=== PATIENT | female | born 1945 | race Caucasian/White ===

== ENCOUNTER 2023-12-27 08:00 | Day surgery (SDC) | payer MEDICARE, OTHER, SELFPAY ==
[2023-12-27 08:40] VITALS: BMI 22.9
[2023-12-27 08:48] VITALS: BP 167/100; BMI 22.9
[2023-12-27 08:48] LABS: Glucose - Point of Care 138 mg/dl (70-99)
[2023-12-27 10:35] VITALS: BP 144/92
[2023-12-27 10:45] VITALS: BP 161/97
[2023-12-27 11:00] VITALS: BP 162/96
== END 2023-12-27 11:10 | disposition home or self-care (01) ==
LOC: SDS 08:00
PROVIDERS: ATTENDING PHYSICIAN Internal Medicine Gastroenterology
DX: D50.9 Iron deficiency anemia, unspecified (principal); K57.30 Diverticulosis of large intestine without perforation or abscess without bleeding; K64.8 Other hemorrhoids; K64.4 Residual hemorrhoidal skin tags; K31.7 Polyp of stomach and duodenum; K31.A0 Gastric intestinal metaplasia, unspecified; K31.89 Other diseases of stomach and duodenum
CPT/HCPCS: 45378; 43239; 88305; 82962; 88342

== ENCOUNTER → 2024-02-13 10:27 | Outpatient (REF) | payer MEDICARE, OTHER, SELFPAY | LOC: RCS 10:27 | PROVIDERS: ATTENDING PHYSICIAN Internal Medicine Cardiovascular Disease; FAMILY PHYSICIAN Family Medicine | DX: I35.0 Nonrheumatic aortic (valve) stenosis (principal) | CPT/HCPCS: 93306 ==

== ENCOUNTER 2024-03-10 06:31 | Day surgery (SDC) | payer MEDICARE, OTHER, SELFPAY ==
[2024-02-27 10:43] VITALS: BMI 24.1
--- NOTE | 2024-02-27 14:47 | HPS.HSE ---
Family Physician
-
Family Physician: INTERVIEWE UNKNOWN - PT NOT
Chief Complaint
-
Severe aortic stenosis.
History of Present Illness
The patient is an 79 year old female presenting today for severe aortic stenosis. The patient has been ordered serial echocardiograms in the past for this diagnosis. She offered no cardiovascular complaints during her routine 6 month
follow-up with cardiology in mid December 2018; however, she is noted to be very limited with her activities of daily living. She would undergo a repeat echocardiogram in January 2024 to reassess the severity of her valvular disease. Her echocardiogram on
02/13/2024 demonstrated severe aortic stenosis with a peak/mean gradient of 110/65 mmHg and an aortic valve area 0.5 cm2. Based off her worsening gradient, it is recommended she proceed with a right and left cardiac catheterization at this time in
preparation for potential TAVR in the near future. She denies any current complaints today such as chest pain, shortness of breath, nausea, vomiting, diarrhea, lightheadedness, dizziness, cough, sore throat, or fever.
Medical History
Past Medical History
Past Medical History: Reports Other
Additional Past Medical History:
1. Severe aortic stenosis.
2. Hypertension.
3. Hyperlipidemia.
4. Mild aortic regurgitation.
5. Lil-wxgmvnx-givhemusg diabetes.
6. Gastroesophageal reflux disease.
7. Schatzki's ring.
8. Paraesophageal hernia, status post fundoplication 2017.
9. Peptic ulcer disease.
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
11. Colon and gastric polyps.
12. Diverticulosis.
13. Hemorrhoids.
14. Lumbar stenosis with neurogenic claudication.
15. Osteoarthritis, status post left reverse total shoulder arthroplasty 08/2021.
16. Uterine fibroids.
17. Ovarian cysts.
18. Chronic sinusitis.
19. Left eye detached retina, status post repair 2010.
20. Glaucoma.
21. Macular degeneration.
22. Shingles 2019.
23. 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
24. Osteoporosis.
Past Surgical History: Reports Other
Additional Past Surgical History:
1. L4-L5 posterior spinal fusion and L3-L5 decompression.
2. I&D and removal of infected lumbar hardware.
3. Left reverse total shoulder arthroplasty.
4. Right carpal tunnel release.
5. Partial hysterectomy.
6. Cholecystectomy.
7. Appendectomy.
8. Fundoplication.
9. Ovarian cystectomy.
10. Tonsillectomy.
11. Left eye retina repair.
12. Bilateral cataract extraction.
13. Multiple epidural steroid injections.
14. Multiple colonoscopies.
15. Multiple endoscopies.
Social History
Tobacco: Non-smoker
Alcohol: None
Living: Other (The patient lives in a two-story home with her significant other.)
Family History
Family History: Not pertinent
Allergies / Home Medications
Allergy/Medication List:
MEDICATIONS:
1. Gabapentin 300 mg p.o. three times a day.
2. Ferrous sulfate 325 mg p.o. daily.
3. Aloe vera 600 mg p.o. daily.
4. PreserVision 2 tablet p.o. daily.
5. Timolol malleate 0.5% 2 drops ophthalmic daily.
6. Omeprazole 20 mg p.o. daily.
7. [place]-3/fish oil 1 capsule p.o. daily.
8. Metformin HCl 850 mg p.o. daily.
9. Lysine 1000 mg p.o. daily.
10. Lisinopril 10 mg p.o. daily.
11. Latanoprost 0.005% eye drops 2 drops ophthalmic daily.
12. Fluticasone propionate 2 sprays nasal daily.
13. Calcium carbonate 600 mg p.o. twice a day.
14. Atorvastatin 10 mg p.o. daily.
15. Tizanidine 2 mg p.o. three times a day.
16. Excedrin migraine 2 tablets p.o. daily.
ALLERGIES: No known drug allergies.
Review of Systems
-
A 12 point ROS was completed and negative except as noted: Yes
Physical Exam
Vital Signs
Blood pressure 126/76. Heart rate 78. Respirations 18. Pulse ox 97% on room air.
Height 5 feet, 4.5 inches. Weight 64.7 kg. BMI 24.1.
Physical Exam
General: Well Developed, Well Nourished and No Apparent Distress
HEENT: NormoCephalic, Moist mucous membranes and Atraumatic
Respiratory: Clear
Cardiac: Regular Rhythm and Murmur (3/6 murmur. )
GI: Soft, Non Tender and Non Distended
Musculoskeletal: Other (Trace edema of bilateral lower extremities. The patient currently ambulates with a rolling walker. )
Skin: Warm and Dry
Neuro: AO x 3 and Nonfocal/grossly intact
Laboratory Results
-
DIAGNOSTIC STUDIES as of 02/27/2024: White blood cell count 9.2. Hemoglobin 12.4. Platelet count 270,000. Sodium 143. Potassium 4.5. BUN 20. Creatinine 0.9. Glucose 149. Calcium 9.5. AST 21. ALT 12. Albumin 4.4.
EKG 02/27/2024: Normal sinus rhythm. Moderate voltage criteria for LVH, may be normal variant. Nonspecific T wave abnormality.
Echocardiogram 02/13/2024: Mild concentric left ventricular hypertrophy with borderline reduced systolic function and ejection fraction 52%. Thickened mitral leaflets. Mitral annular calcification. Trace mitral regurgitation. Normal left atrium.
Severe aortic stenosis with mild aortic regurgitation. Peak/mean gradient 110/65 mmHg, aortic valve area 0.5 cm2. Normal right heart with normal pulmonary artery systolic pressure. In March 2022, the peak and mean aortic valve gradients were 70 and
43 mmHg. Aortic regurgitation was trace. The aortic valve area was 0.5 cm2. The ejection fraction was 55-60%.
Impression/Plan
-
IMPRESSION/PLAN:
1. Severe aortic stenosis: The patient is in need of a right and left cardiac catheterization with Dr. Can Franks on 03/10/2024. This is in preparation for potential TAVR in the near future. The benefits and risks of the procedure have been
explained to the patient. The patient understands these risks and wishes to proceed.
--- NOTE | 2024-03-09 10:12 | CONSULT.STRU ---
Consultation
-
Date/Time Consultation Requested: 03/10/2024
Date/Time Consultation Performed: 03/10/2024
Requesting Provider: Can Franks MD
Performing Provider: SHIRA Toledo
Reason for Consultation: /TAVR
Patient History
Physicians
Family Physician: Edson Serna MD
Outpatient Sweet Dough Mixer: Can Cast MD
Primary Sweet Dough Mixer: Can Cast MD
History of Present Illness
Ms. Samano is a very pleasant 79 female that presents with severe aortic stenosis. It is difficult to illicit symptoms d/t ADL dysfunction and limited activity r/t neuropathic injury. Her echocardiogram from 02/13/2024 is notable for an aortic
valve P/M 110/65, BRIDGER 0.5, DI 0.2, mild AI, EF 52%, MAC, trace MR, trace TR, PAP 19.
Discussed the pathophysiology and treatment options of including SAVR and TAVR. Explained the evaluation process comprising of CT scan, CT surgical consult, dental clearance, and a heart team discussion. TAVR booklet, prescriptions, appointments,
and contact information given to patient. Allowed for and answered questions at bedside.
Past Medical History
Past Medical History: GERD, HTN, NIDDM, Valvular Disease (Aortic stenosis) and Other (mixed hyperlipidemia, spinal stenosis, osteoarthritis, PUD, macular degeneration, diverticulosis, schatzki's ring, bleeding duodenal vascular ectasia (2012))
Past Surgical History
Past Surgical History: Abdominal (fundoplication (1/3 of stomach lying in chest)), Cholecystectomy, Hysterectomy and Orthopedic ((L) shoulder replacement, spinal surgery, LUZ)
Dental History
Dr. Griffin-- Patient will call to make an appointment
Family History
Mother: at Age (73)
Father: at Age (90) and Cause of (CHF)
Social History
Alcohol: None
Drug: None
Tobacco: Non-Smoker
Personal: Partner
Living: Other (lives with s/o)
Allergies
Allergy/AdvReac Type Severity Reaction Status Date / Time
No Known Allergies Allergy Verified 02/24/24 13:28
Home Medications
�Medication �Instructions �Recorded �Confirmed �Type
atorvastatin 10 mg tablet 10 mg PO DAILY 12/27/23 02/24/24 History
gabapentin 300 mg capsule 300 mg PO TID 12/27/23 02/24/24 History
lisinopril 10 mg tablet 10 mg PO DAILY 12/27/23 02/24/24 History
lysine 500 mg tablet (L-Lysine) 1,000 mg PO DAILY 12/27/23 02/24/24 History
metformin 850 mg tablet 850 mg PO DAILY 12/27/23 02/24/24 History
omega 3-ije-zei-fish oil 1,000 mg 1 cap PO DAILY 12/27/23 02/24/24 History
(120 mg-180 mg) capsule (Fish Oil)
omeprazole 20 mg capsule,delayed 20 mg PO DAILY 12/27/23 02/24/24 History
release
tizanidine 2 mg capsule 2 mg PO TID 12/27/23 02/24/24 History
vit C 250 mg-vit E 90 mg-zinc 40 2 tab PO DAILY 12/27/23 02/24/24 History
mg-copper 1 mk-pdlpyj-etmybk
capsule (PreserVision AREDS-2)
aloe vera 600 mg PO DAILY 02/24/24 02/24/24 History
calcium carbonate (Calcium 600) 600 mg PO BID 02/24/24 02/24/24 History
ferrous sulfate 325 mg (65 mg 325 mg PO DAILY 02/24/24 02/24/24 History
iron) tablet (iron)
latanoprost 0.005 % eye drops 2 drp ophthalmic (eye) DAILY 02/24/24 02/24/24 History
timolol maleate (PF) 0.25 % eye 2 drp ophthalmic (eye) DAILY 02/24/24 02/24/24 History
drops in a dropperette
xdkxhsc-fykcgpgebcral-fllvdfdx 250 2 tab PO DAILY 02/27/24 02/27/24 History
mg-250 mg-65 mg tablet (Excedrin
Migraine)
fluticasone propionate 50 2 spray intranasal DAILY 02/27/24 02/27/24 History
mcg/actuation nasal
spray,suspension
STS%
STS %: 2.62
Review of Systems
-
History Source: Patient
General: Reports Fatigue
HEENT: Reports No Symptoms
Respiratory: Reports No Symptoms
Cardiac: Reports No Symptoms
Abdomen/GI: Reports No Symptoms
: Reports No Symptoms
Musculoskeletal: Reports No Symptoms
Skin: Reports No Symptoms
Neurological: Reports Other (LLE neuralgia)
Vascular: Reports No Symptoms
Physical Exam
Vital Signs
Actual Weight 64.7 kg 02/27/24 10:43
Body Mass Index (BMI) 24.1 02/27/24 10:43
Labs
02/27/2024
HH: 12.4/37.7
Plt: 270K
BUN/Creatinine: 20/0.9
GFR: >60
Diagnostic Studies
Echocardiogram 02/03/2024:
CONCLUSIONS
1. Mild concentric left ventricular hypertrophy with borderline reduced
systolic function and ejection fraction 52%
2. Thickened mitral leaflets, mitral annular calcification, trace mitral
regurgitation and normal left atrium
3. Severe aortic stenosis with mild aortic regurgitation. Peak/mean gradient
110/65 mmHg, aortic valve area 0.5 cm2
4. Normal right heart with normal pulmonary artery systolic pressure
In March 2022 peak and mean aortic valve gradients were 70 and 43 mmHg. Aortic
regurgitation was trace. The aortic valve area was 0.5 cm 2. The EF was 55-
60%.
Cardiac Catheterization 03/10/2024:
INDICATION: This is an 79-year-old female presents for left heart catheterization for treatment of severe symptomatic aortic stenosis. Her most recent echocardiogram was notable for a mean aortic valve gradient of 65 mmHg.
ACCESS: Right radial artery, 5 [place] sheath
HEMODYNAMICS : (mmHg)
AO (s/d) : 131/84
CORONARY FINDINGS
DOMINANCE: Right
LEFT MAIN: Short and unobstructed
LEFT ANTERIOR DESCENDING: The LAD arises normally from the left main and runs in the anterior interventricular groove. The LAD is moderately calcified. There is a 50% stenosis in the mid LAD between the first and second diagonal branches and
tandem 40% stenoses beyond the second diagonal branch. The distal LAD has only minor irregularities.
CIRCUMFLEX: The circumflex is a medium caliber nondominant vessel supplying small OM1 and OM 2. OM 3 is a small to medium caliber vessel that is widely patent and the circumflex terminates in a large OM 4
RIGHT CORONARY ARTERY: The right coronary artery is a moderate to heavily calcified dominant vessel with a 40-50% stenosis in the mid RCA. There are small tandem PDAs arising from the distal RCA and the vessel terminates in a moderate-sized
posterolateral
VENTRICULOGRAPHY: Not done
RADIATION SUMMARY: Fluoro Time (min): 3.9, Dose (mGy): 241, DAP (Gy.cm2) : 19.5
Closure Device: TR band
CONCLUSIONS
1. Noncritical coronary disease involving the mid LAD and mid RCA
RECOMMENDATIONS
1. Proceed with TAVR evaluation as aortic stenosis remains primary clinical problem in the absence of any anginal symptoms
Exam
General: Well Developed, Well Nourished and No Apparent Distress
HEENT: Normocephalic, Moist Mucous Membranes and Atraumatic
Neck: Trachea Midline
Respiratory: Clear
Cardiac: Regular Rhythm and Murmur (III/ PRIYANK)
GI: Soft and Non Tender
Rectal: Deferred by Provider
Skin: Warm and Dry
Neuro: Awake, Alert, Oriented and AO x 3
Psych: Calm
Assessment / Plan
-
Aortic stenosis
Continue TAVR evaluation
Trend creatinine after contrast administration (Rx given)
CT TAVR (03/24)
CT surgical Consult (MPT 04/03)
Frailty testing and KCCQ12 at consult
Will need to start aspirin before TAVR
Dental clearance
Heart team discussion
Data Reviewed
-
EKG: Tracing Personally Visualized and interpreted (NSR)
Director Corporate Security: Report Reviewed by me and Discussed with Physician
Echo: Report Reviewed by me and Discussed with Physician
Labs: Labs Reviewed by me
Old Records: Reviewed (Dr. Cast's office note)
Total Time Spent with Patient (in minutes): 45
[2024-03-10] VITALS (13 sets, daily range): BP systolic 119–157; BP diastolic 79–98
[2024-03-10 07:16] LABS: Glucose - Point of Care 137 mg/dl (70-99)
[2024-03-10] MEDS: NSS 194 ML IV (07:16)
--- NOTE | 2024-03-10 08:43 | ITS.CL.CATH ---
Tin Flopper - Catheterization
Cardiac Catheterization
Procedure Report:
LEFT HEART CATHETERIZATION
Date of Procedure: March 10, 2024
Referring: Dr. Can Cast
PROCEDURES:
1. Coronary angiography
INDICATION: This is an 79-year-old female presents for left heart catheterization for treatment of severe symptomatic aortic stenosis. Her most recent echocardiogram was notable for a mean aortic valve gradient of 65 mmHg.
ACCESS: Right radial artery, 5 [place] sheath
HEMODYNAMICS : (mmHg)
AO (s/d) : 131/84
CORONARY FINDINGS
DOMINANCE: Right
LEFT MAIN: Short and unobstructed
LEFT ANTERIOR DESCENDING: The LAD arises normally from the left main and runs in the anterior interventricular groove. The LAD is moderately calcified. There is a 50% stenosis in the mid LAD between the first and second diagonal branches and
tandem 40% stenoses beyond the second diagonal branch. The distal LAD has only minor irregularities.
CIRCUMFLEX: The circumflex is a medium caliber nondominant vessel supplying small OM1 and OM 2. OM 3 is a small to medium caliber vessel that is widely patent and the circumflex terminates in a large OM 4
RIGHT CORONARY ARTERY: The right coronary artery is a moderate to heavily calcified dominant vessel with a 40-50% stenosis in the mid RCA. There are small tandem PDAs arising from the distal RCA and the vessel terminates in a moderate-sized
posterolateral
VENTRICULOGRAPHY: Not done
RADIATION SUMMARY: Fluoro Time (min): 3.9, Dose (mGy): 241, DAP (Gy.cm2) : 19.5
Closure Device: TR band
CONCLUSIONS
1. Noncritical coronary disease involving the mid LAD and mid RCA
RECOMMENDATIONS
1. Proceed with TAVR evaluation as aortic stenosis remains primary clinical problem in the absence of any anginal symptoms
Copy to: Dr. Can Cast
[2024-03-10] MEDS: NSS 1000 IV (09:01)
--- NOTE | 2024-03-10 16:15 | PTCARENOTE ---
CT surgery SENIOR NET ARCHITECT consulting with pt at 0830. Pt eros all well. All questions addressed.
== END 2024-03-10 12:10 | disposition home or self-care (01) ==
LOC: CATH 06:31
PROVIDERS: ATTENDING PHYSICIAN Internal Medicine Interventional Cardiology; FAMILY PHYSICIAN Family Medicine
DX: I35.0 Nonrheumatic aortic (valve) stenosis (principal); I25.10 Atherosclerotic heart disease of native coronary artery without angina pectoris; I10 Essential (primary) hypertension; E78.2 Mixed hyperlipidemia; E11.9 Type 2 diabetes mellitus without complications; K21.9 Gastro-esophageal reflux disease without esophagitis; Z79.84 Long term (current) use of oral hypoglycemic drugs; Z79.82 Long term (current) use of aspirin; Z82.49 Family history of ischemic heart disease and other diseases of the circulatory system
CPT/HCPCS: 82962; 93454; C1769; C1894; Q9967

== ENCOUNTER → 2024-03-24 09:19 | Outpatient (REF) | payer MEDICARE, OTHER, SELFPAY | LOC: RAD 09:19 | PROVIDERS: ATTENDING PHYSICIAN Nurse Practitioner Acute Care; FAMILY PHYSICIAN Family Medicine | DX: I35.0 Nonrheumatic aortic (valve) stenosis (principal) | CPT/HCPCS: 74174; 75572; Q9967 ==

== ENCOUNTER 2024-04-09 09:25 | Inpatient (IN) | payer MEDICARE, OTHER, SELFPAY ==
[2024-03-31 12:13] VITALS: BMI 22.9
[2024-03-31 12:56] LABS: % Eosinophils 7.8 % (0-6); % Immature Granulocytes 0.2 % (0-0.5); % Lymphocytes 34.7 % (20.5-51.1); % Neutrophils 49.3 % (42.2-75.2); Absolute Basophils 0.1 10^3/uL (0-0.2); Absolute Eosinophils 0.7 10^3/uL (0-0.7); Absolute Monocytes 0.6 10^3/uL (0.1-0.6); Absolute Neutrophils 4.3 10^3/uL (1.4-6.5); Hemoglobin 13.1 g/dL (12.0-16.0); Mean Corp Hgb Conc. 33.6 g/dL (33.0-37.0); Mean Corpuscular Volume 92.2 fL (81.0-99.0); Mean Platelet Volume 9.3 fL (7.4-10.4); Nucleated Red Blood Cells % 0 %; Platelet Count 264 10^3/uL (130-400); Red Blood Cell Count 4.23 10^6/uL (4.20-5.40); Red Cell Dist. Width 14.5 % (11.5-14.5); White Blood Cell Count 8.8 10^3/uL (4.8-10.8)
[2024-03-31 12:58] LABS: Urine Albumin Negative (Neg - Trace); Urine Bilirubin Negative (Negative); Urine Character Clear (Clear); Urine Color Yellow; Urine Glucose Negative (Negative); Urine Ketone Negative (Negative); Urine Leukocyte 1+ (Negative); Urine Nitrite Negative (Negative); Urine Occult Blood Negative (Negative); Urine Urobilinogen Negative (Neg - 1+)
[2024-03-31 13:08] LABS: APTT 31.8 Sec (23.4-35.0)
[2024-03-31 13:21] LABS: Urine Bacteria Many (Negative); Urine Red Blood Cell 0-2 /HPF (0-2)
[2024-03-31 13:28] LABS: NT-proBNP 1520 pg/ml
[2024-03-31 13:38] LABS: ALT (SGPT) 10 U/L (0-35); AST (SGOT) 20 U/L (14-36); Albumin 4.6 g/dl (3.5-5.0); Alkaline Phosphatase 83 U/L (38-126); Blood Urea Nitrogen 23 mg/dl (7-17); Calcium 9.8 mg/dl (8.4-10.2); Carbon Dioxide 27 mmol/L (22-30); Chloride 103 mmol/L (98-107); Direct Bilirubin 0.2 mg/dl (0.0-0.4); Estimated Creatinine Clearance 42 ml/min; Glucose 166 mg/dl (70-99); Potassium 5.4 mmol/L (3.5-5.1); Sodium 140 mmol/L (135-145); Total Bilirubin 0.6 mg/dl (0.2-1.3); Total Protein 6.9 g/dl (6.3-8.2); eGFR 56.95
[2024-03-31 13:59] LABS: Glycohemoglobin (HgbA1c) 6.6 % (4.0-5.6)
--- NOTE | 2024-03-31 15:32 | CM ---
spoke to pt in PAT's, we discussed preop TAVR teaching including lifting and driving restrictions. she is prev indep, lives with her s.o. in a 2 story hoe with a first floor set up and 2 steps to enter. she has a rollator, cane and is getting a
scooter this week. she uses the rollator most times. she has the TAVR educ book, soap and instructions. she is agreeable to a f/u visit from the ct transitional care nurse after dc. plan is for TAVR 04/09, cm role explained and all questions
answered.
[2024-04-09] VITALS (13 sets, daily range): BP systolic 87–165; BP diastolic 56–93; BMI 22.4
--- NOTE | 2024-04-09 09:51 | CM ---
Reviewed chart. Mrs. Samano is in the operating room today. Prior to admission she resides with her significant other in a two story home with two steps to enter. She has a first floor set-up. Prior to admission she uses a rollator for
ambulation. She has a rollator, and single point cane. She is getting a scooter. Medical work-up in progress. The discharge plan is to return home with her significant other and a home visit by the Cardiothoracic Transitional Care Nurse when
medically stable.
--- NOTE | 2024-04-09 12:23 | W.CVOR.SURPR ---
CVOR Surgeon Immed Pre Op
-
I have examined this patient prior to performance of the scheduled procedure.
The patient's condition is unchanged from the time of the dictated/written History and
Physical and the patient is able to undergo the scheduled procedure.
--- NOTE | 2024-04-09 12:31 | PTCARENOTE ---
admission done. VSS. weight. IV placed. clipped and prepped and wiped with CHG wipes. confirmed showers done at home. ABO sent. Consent, H&P and anesthesia forms in chart. will continue to monitor.
[2024-04-09 13:40] LABS: Glucose - Point of Care 126 mg/dl (70-99)
[2024-04-09] MEDS: ANCEF 10 IV ×2 (13:48→17:00)
[2024-04-09 14:39] LABS: ACT-LR - POC 261 Seconds (116-155)
[2024-04-09 14:52] LABS: ACT-LR - POC 331 Seconds (116-155)
--- NOTE | 2024-04-09 14:58 | W.IMMPOSTOP ---
Surgical Immed Post Op Note
-
[id number]
STRUCTURAL HEART PROCEDURE NOTE: TAVR
Preoperative Dx:
Severe/critical (P/M: 110/65, BRIDGER 0.5, DI 0.2, Pv: 5.24)
HTN/HLD
DM II
Spinal stenosis
OA - multiple joints
PUD/GERD
Bleeding duodenal vascular ectasia
Colonic polyps
Paraesophageal hernia
Schatzki's ring
Macular degeneration
Postoperative Dx:
Same
Procedures:
1) L ACID STRENGTH INSPECTOR access w/ U/S, fluoroscopic, and tactile guidance, micropuncture technique, 6Fr sheath placement
2) L CFV access w/ U/S, fluoroscopic guidance, seldinger technique, 6Fr sheath placement
3) Limited L ileofemoral angiography
4) R ACID STRENGTH INSPECTOR access w/ U/S, fluoroscopic, and tactile guidance, micropuncture technique, limited angiography, 6Fr sheath placement
5) Placement of temporary RV pacing wire w/ threshold testing
6) Placement of pigtail catheter in RCC, limited aortography & confirmation of co-planar angles
7) Perclose placement x 2 R ACID STRENGTH INSPECTOR, 8Fr sheath placement
8) Serial dilation of R ileofemoral system w/ placement of Gonzales E-sheath; systemic heparinization
9) Wire purchase across the stenotic AV (AL-1, soft-tip straight wire, extra-stiff wire)
10) R TF TAVR w/ placement of 23mm SABA 3 valve
11) Completion aortography
12) Completion TTE
13) Removal of oobbf-xxpuwhnf-ebychw/Gonzales E-sheath w/ mgmt of R ACID STRENGTH INSPECTOR w/ perclose x 2; 8Fr angioseal; manual pressure
14) Completion R ileofemoral angiography
15) Removal of L ACID STRENGTH INSPECTOR sheath w/ mgmt w/ 6Fr angioseal; manual pressure
16) Removal of temporary pacing wire and L CFV sheath w/ mgmt w/ manual pressure
Methods Analyst:
Dr. Can Franks
Cardiac Surgeon:
Dr. Lul Acevedo
Anesthesia:
MAC, local to B/L groins
Implants:
Perclose x 2
8Fr angioseal x 1
6Fr angioseal x 1
Gonzales [employer]esciences, SABA 3, 23mm, [id number]
Cath Data:
Start: 1409, Deploy: 1441, End: 1455
FT: 7.7min, mGY: 175.17, DAP: 22.6615, Contrast: 92
Post-TTE: mean gradient 9mmHg, trace PVL
Complications:
None
Condition:
Stable/guarded to recovery
--- NOTE | 2024-04-09 15:00 | ITS.CL.CATH ---
Assistant Reading Teacher - Catheterization
Cardiac Catheterization
Procedure Report:
TRANSCATHETER AORTIC VALVE REPLACEMENT
Date of Procedure: April 09, 2024
Referring: Dr. Can Cast
Operators: Drs. Can Franks and Lul Acevedo
PROCEDURE PERFORMED:
1. Successful placement of 23 mm Gonzales Mac S3 aortic valve via right common femoral approach.
PREPROCEDURE NYHA CLASS: 3
DESCRIPTION OF PROCEDURE: The patient was referred for assessment of severe symptomatic aortic stenosis and following a comprehensive evaluation it was felt that transcatheter aortic valve replacement (TAVR) would be the most appropriate treatment.
Informed consent was obtained prior to the procedure. A 'time-out' was called and the procedural plan was verbally confirmed by anesthesia, surgery, perfusion, and label remover staff.
Arterial was obtained in the left common femoral artery using ultrasound guidance and micropuncture technique. A 6 Fr sheath was inserted. Ultrasound guidance was then utilized to gain access into the left common femoral vein and a 6 Fr sheath was
inserted. Attention was then turned to the right common femoral artery. Ultrasound guidance was utilized and access was obtained in the right common femoral artery using ultrasound guidance. Angiography through the micropuncture sheath revealed
appropriate positioning of the arteriotomy for preclosure with 2 Perclose devices. A 0.035 inch J-wire was then reinserted through the micropuncture sheath and a 6 Fr sheath was then inserted.
A transvenous pacemaker wire was then advanced from the left common femoral vein to the right ventricular apex where excellent pacing thresholds were obtained.
An angled pigtail catheter was then advanced through the left common femoral sheath and positioned in the proximal ascending thoracic aorta / right coronary cusp. Angiography was performed to define a coplanar angle facilitating positioning and
delivery of the TAVR device. [place] 16/CAU 12 appear to be a reasonable coplanar angle.
Pre-closure of the right femoral arteriotomy was then performed using 2 Perclose devices and was followed by placement of an 8 Fr arterial sheath.
An AL-1 catheter was then advanced to the proximal descending thoracic aorta over 0.035' J-tipped guidewire. An Amplatz Extra-Stiff wire was then advanced through the AL-1 catheter to the proximal descending thoracic aorta. The AL-1 catheter was
removed and the supportive wire was utilized to facilitate delivery of the Gonzales eSheath and dilator. Heparin, 5000 units, was administered and the ACT was monitored throughout the procedure.
The AL-1 catheter was then readvanced through the Gonzales eSheath. The 0.035' stiff wire was allowed to drift across the aortic arch and the AL1 was positioned just above the aortic valve. The stenotic leaflets were probed with a Soft-tip Straight
wire. The aortic leaflets were crossed and the AL-1 catheter followed the Soft-tip Straight wire to the mid left ventricle. The wire was removed.
An Amplatz Extra-Stiff wire with a generous curved tip was then advanced to the mid left ventricle. The AL-1 catheter was removed and the Amplatz wire was left in place in order to facilitate delivery of the Gonzales delivery system. A 23 mm
Gonzales MAC S3 valve was brought to the table and the orientation of the valve on the balloon delivery system was confirmed by all operators. The MAC S3 valve was advanced through the eSheath and into the proximal descending thoracic aorta.
The MAC valve was centered on the delivery balloon and the entire system was retroflexed as across the aortic arch in an [place] projection. The MAC S3 delivery system was then advanced across the stenotic aortic leaflets. The pusher was
retracted. Angiography confirmed appropriate positioning of the valve and rapid pacing was undertaken. The 23 mm MAC S3 valve was deployed during rapid pacing. Valve deployment was uneventful. Aortography following valve deployment suggested
no aortic insufficiency while the wire was still across the valve in the left ventricle.
The post valve deployment transthoracic echocardiogram was notable for trace paravalvular aortic insufficiency with a mean aortic valve gradient of 9 mmHg.
The Gonzales valve delivery system was removed. The Gonzales eSheath was removed and the Perclose knots were advanced to the arteriotomy site with suboptimal hemostasis and an 8 [place] Angio-Seal was then deployed with excellent hemostasis.
Angiography after the Perclose knots and Angio-Seal demonstrated good distal runoff.
A 6 [place] Angio-Seal was then utilized to obtain hemostasis in the left common femoral artery. The temporary pacemaker and 6 Fr sheath were removed and manual pressure was held over the 6 [place] femoral venous access.
Protamine was administered to reverse the intravenous anticoagulant.
Fluoro Time: 7.7 min, Dose: 175 mGy, DAP : 22.7 Gy.cm2
CONCLUSIONS:
1. Severe symptomatic aortic stenosis. Successful deployment of a 23 mm MAC S3 valve with trivial paravalvular aortic insufficiency and mean gradient of 9 mmHg
2. The right common femoral arteriotomy was closed with 2 Perclose devices and 8 [place] Angio-Seal. The left common femoral arteriotomy site was closed with a 6 [place] Angio-Seal
Copy to: Dr. Can Cast
--- NOTE | 2024-04-09 15:05 | W.PN.UPDATE ---
Update Note
Progress Note Update
Reviewed Ms. Samano with the heart team in the preTAVR SDM meeting and confirmed a 23mm S3 via right TF access. Patient will resume aspirin post TAVR. #23 mm S3 (serial# [id number]) successfully deployed via right transfemoral access, Post implant
MG 9 mmHg.
--- NOTE | 2024-04-09 15:45 | PTCARENOTE ---
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 drowsy but able to arouse. NSR on monitor HR 80s. VSS. on simple face mask. pulse ox 95% WORKMAN. tongue midline. Pulses palpable x4. schuyler groin sites c/d/i. speech clear. Will continue to monitor.
[2024-04-09] MEDS: NEURONTIN 300 MG PO (17:20)
[2024-04-09] MEDS: TYLENOL 650 MG PO (17:20)
[2024-04-09] MEDS: ZANAFLEX 2 MG PO (18:55)
[2024-04-09] MEDS: VANCOCIN 200 IV (19:35)
[2024-04-09] MEDS: OSCAL CAL 500 500 MG PO (19:36)
--- NOTE | 2024-04-09 20:00 | PTCARENOTE ---
Received pt from [facility]; pt is S/P TAVR; pt is resting comfortably in bed; NSR on monitor, VSS; pt able to ambulate at 1900, assisted OOB with rolling walker to bathroom and back to bed; right and left femoral sites stable, clean, dry, and intact;
heart sounds audible, radial and DP pulses palpable, no edema noted; lungs clear, spo2 94 % on RA; hypoactive BS x4 quadrants, abdomen, soft non tender; pt voiding clear yellow urine; surgical sites maintained; PIV maintained; pt + for MRSA in nose,
vancomycin ordered and started; CHG wipe bath provided with new gown and tele leads; call [place] within reach; will continue to monitor.
[2024-04-09] MEDS: NEURONTIN PO ×2 (21:13→21:24)
[2024-04-09] MEDS: ANCEF 5 IV (21:13)
[2024-04-09] MEDS: ZANAFLEX PO ×2 (21:13→21:28)
[2024-04-09] MEDS: TIMOPTIC 0.25% OPHTHALMIC SOLUTION 1 DROP BOTH EYES (21:37)
[2024-04-10] VITALS (16 sets, daily range): BP systolic 90–145; BP diastolic 57–124; PULSE 82; O2SAT 96–99; BMI 22.7
--- NOTE | 2024-04-10 | PTCARENOTE ---
Pt assessment unchanged; NSR on monitor, VSS; 2LNC overnight; pt resting comfortably in bed; pt refused 2200 medications, see MAR; call [facility] within reach; will continue to monitor.
[2024-04-10 04:13] LABS: Hematocrit 33.2 % (37.0-47.0); Hemoglobin 11.4 g/dL (12.0-16.0); Mean Corp Hgb Conc. 34.3 g/dL (33.0-37.0); Mean Corpuscular Hgb 31.3 pg (27.0-31.0); Mean Corpuscular Volume 91.2 fL (81.0-99.0); Mean Platelet Volume 9.3 fL (7.4-10.4); Platelet Count 229 10^3/uL (130-400); Red Blood Cell Count 3.64 10^6/uL (4.20-5.40); Red Cell Dist. Width 14.5 % (11.5-14.5); White Blood Cell Count 11.8 10^3/uL (4.8-10.8)
[2024-04-10 04:27] LABS: Blood Urea Nitrogen 22 mg/dl (7-17); Calcium 8.9 mg/dl (8.4-10.2); Carbon Dioxide 23 mmol/L (22-30); Chloride 108 mmol/L (98-107); Estimated Creatinine Clearance 42 ml/min; Glucose 212 mg/dl (70-99); Potassium 4.2 mmol/L (3.5-5.1); Sodium 135 mmol/L (135-145); eGFR 56.95
--- NOTE | 2024-04-10 06:41 | W.PN.CT ---
Addendum entered and electronically signed by SHIRA Rodney 04/10/24 11:42:
CDI inquiry:
#Atelectasis
Addendum entered and electronically signed by Lul Acevedo MD 04/10/24 09:15:
I saw and examined the patient.
The PA's note was reviewed and I agree with the note.
Comment:
Postop day #1 status post right transfemoral TAVR replacement with 23 mm SABA 3 valve.
No major overnight events.
Check echocardiogram
OOB/IS/ambulate
Continue current medications
Discharge planning for hopefully later today
Original Note:
Today's Communication / Plan
-
-pod #1
-no issues overnight
-Echo today
-continue current meds
-encourage IS, OOB
Assessment / Plan
-
-Severe symptomatic - s/p R TF TAVR w/ placement of 23mm SABA 3 valve on 04/09/24, pod #1
- Post-TTE: mean gradient 9mmHg, trace PVL
- HTN/HLD
- DM II
- Spinal stenosis
- OA - multiple joints
- PUD/GERD
- Bleeding duodenal vascular ectasia
- Colonic polyps
- Paraesophageal hernia
- Schatzki's ring
- Macular degeneration
Discussed patient care with: Nursing and Care Team
Subjective
-
Date of Service: April 10, 2024
Objective Data
-
Lab Results
04/10/24 03:44
04/10/24 03:44
PT 12.0 Sec (11.4-14.6) 03/31/24 12:23
INR 0.90 03/31/24 12:23
APTT 31.8 Sec (23.4-35.0) 03/31/24 12:23
Vital Signs
Vital Signs
Temp Pulse Resp BP Pulse Ox
97.8 F 74 20 116/70 97
04/10/24 04:00 04/10/24 04:30 04/10/24 04:00 04/10/24 04:00 04/10/24 04:00
SaO2: 97
Physical Exam
-
General: Awake and AOx3
Cardiovascular: Regular rate & rhythm, No Murmurs and No Rub
Respiratory: Clear and Decreased Breath Sounds
Incision: Other (groins are cdi, soft, nontender, no hematoma b/l)
Extremities: No Edema (2+ DPs b/l)
Data Reviewed
-
Lab Results: Results Reviewed
Medications: Active Meds Reviewed
Chest X-Ray: Report Reviewed and Image Reviewed
ECG: Report Reviewed and Image Reviewed
--- NOTE | 2024-04-10 08:07 | PTCARENOTE ---
Assumed care of patient from overnight cashier RN. AAO x 3 sitting up in chair upon walking rounds. NSR on monitor. Room air 96%. RT groin c,d,i but is complaining of inner thigh pain in that . Lt groin c,d,i. Pulses palpable. Plan for day
discussed.
[2024-04-10] MEDS: NEURONTIN 300 MG PO (08:20)
[2024-04-10] MEDS: ZANAFLEX 2 MG PO (08:20)
[2024-04-10] MEDS: OSCAL CAL 500 500 MG PO (08:20)
[2024-04-10] MEDS: LIPITOR 10 MG PO (08:20)
[2024-04-10] MEDS: FEOSOL 65 MG PO (08:20)
[2024-04-10] MEDS: ASPIR LOW (ENTERIC COATED) 81 MG PO (08:20)
[2024-04-10] MEDS: XALATAN OPHTHALMIC SOLUTION 2 DROP BOTH EYES (08:21)
[2024-04-10] MEDS: TYLENOL 650 MG PO (08:28)
--- NOTE | 2024-04-10 09:15 | W.PN.CARDCBS ---
Today's Communication / Plan
-
s/p TAVR
ambulate as able
echo pending
for possible DC later today
Impression / Plan
-
Primary Vp Integrity: Dr. LADONNA Cast
Assessment:
-Severe symptomatic s/p R TF TAVR 23mm SABA 3 valve 04/09/24
-HTN
-HLD
-DM II
-Spinal stenosis
-OA
-ambulatory dysfunction
-PUD/GERD
-Bleeding duodenal vascular ectasia
-Paraesophageal hernia
-Schatzki's ring
-Macular degeneration
ECHO 04/09/2024: LV not well-visualized, normal RV function, status post Gonzales SABA 23 TAVR well-seated with peak/mean gradients 19/9 mmHg, trace AR, no pericardial effusion
Plan:
-s/p TAVR 04/09
-doing well overnight
-reports some R inner thigh pain below femoral access site which is soft, no ecchymoses noted. follow
-hgb 11.4. continue asa
-in SR upon review of tele overnight
-echo 04/10 pending
-OOB/IS
-for possible DC later today
-OP cardiac follow up arranged
-d/w nursing
Progress Note - Vp Integrity
Subjective
Date of Service: April 10, 2024
reports some L inner thigh/groin discomfort, mild
Objective
Labs:
04/10/24 03:44
04/10/24 03:44
Labs
Hgb 11.4 g/dL (12.0-16.0) L 04/10/24 03:44
Hct 33.2 % (37.0-47.0) L 04/10/24 03:44
Plt Count 229 10^3/uL (130-400) 04/10/24 03:44
PT 12.0 Sec (11.4-14.6) 03/31/24 12:23
INR 0.90 03/31/24 12:23
APTT 31.8 Sec (23.4-35.0) 03/31/24 12:23
Sodium 135 mmol/L (135-145) 04/10/24 03:44
Potassium 4.2 mmol/L (3.5-5.1) 04/10/24 03:44
BUN 22 mg/dl (7-17) H 04/10/24 03:44
Creatinine 1.0 mg/dL (0.6-1.0) 04/10/24 03:44
Glucose 212 mg/dl (70-99) H 04/10/24 03:44
Vital Signs and I&O:
Vital Signs
Temp Pulse Resp BP Pulse Ox
97.8 F 84 20 144/82 96
04/10/24 08:00 04/10/24 08:45 04/10/24 08:00 04/10/24 07:29 04/10/24 08:59
Vital Signs
Temp Pulse Resp BP Pulse Ox
97.8 F 84 20 144/82 96
04/10/24 08:00 04/10/24 08:45 04/10/24 08:00 04/10/24 07:29 04/10/24 08:59
Intake & Output
04/08/24 04/09/24 04/10/24 04/11/24
07:59 07:59 07:59 07:59
Intake Total 360 / 360
Balance 360 / 360
Physical Exam
Physical Exam
GEN: No distress, awake, alert, oriented x3
HEENT: supple, anicteric, mmm, eomi
LUNGS: CTA B/L, no wheezes/rales
CV: Reg, S1/S2, 1/6 syst LSB
EXT: No cyanosis, clubbing, edema
NEURO: Gross non-focal
SKIN: Warm, pink, dry. No rash. B/L groin sites soft, c/d/i, NTTP. R inner thigh with reported soreness however area without ecchymoses, soft, no firm areas
--- NOTE | 2024-04-10 10:14 | CM ---
Reviewed chart. Met with Mrs. Samano to review discharge plans. She states prior to admission she resides with her significant other in a two story home with two steps to enter. She states she has a bedroom/full bathroom on each floor. She
states she sleeps on the first floor. She states prior to admission she ambulates with a rollator. She states she has a rollator, and a single point cane. She has a scooter coming to use in the outside for longer distances. She has a
prescription plan. We reviewed a home visit by the Cardiothoracic Transitional Care Nurse. She is agreeable to a home visit. She states she goes to outpatient physical therapy twice a week at [facility]. Reviewed with her that
[facility] has an outpatient Cardiotherapy Rehab. program, but she feels that is to far. She does have information on [facility]. She states her son will provide transportation home. Medical work-up in progress. The
discharge plan is to return home with her significant other and a home visit by the Cardiothoracic Transitional Care Nurse when medically stable.
--- NOTE | 2024-04-10 11:35 | PN.CDI ---
CDI
- -
CDI:
Physician Documentation Request
Admit Date: 04/09/24 09:25
Dear Doctor Curtis,
Please review the following and provide your response in the progress notes.
Clinical Indicators:
The diagnosis of Atelectasis was included in the signed 04/10 chest xray.
Progress notes state 'encourage IS, OOB'
Please indicate in your progress notes if you are in agreement that the above diagnosis is valid for this patient:
____ - Atelectasis is a valid diagnosis (Please include it in your progress notes)
____ - Atelectasis is not a valid diagnosis for this patient
____ - Other
Use of terms such as suspected, likely, concern for, or probable are acceptable for a diagnosis that is being evaluated, monitored or treated as if it exists and can be coded in the inpatient setting, when documented at the time of discharge.
Thank you,
Stephanie Jasmine RN, BSN
CDI Specialist
tiger text
Please use your independent medical judgment in providing your response.
--- NOTE | 2024-04-10 12:06 | W.DCSUMMARY ---
Discharge Summary
Discharge Data
Date of Admission: 04/09/24
Date of Discharge: 04/10/24
-
Pending Results: No
Hospital Course
Primary care physician: Edson Serna
Outpatient philosophy faculty member: LADONNA Cast
Inpatient consultants: [facility]
Procedures:
1. 04/09/24 Right transfemoral Transcatheter aortic valve replacement with a #23 Gonzales S3 by Drs. Lul Acevedo & Hitesh Franks
Primary Diagnosis:
1. severe aortic stenosis
Secondary Diagnoses:
1. Hypertension
2. Hyperlipidemia
3. Ucl-cvndvco-pbworjceq diabetes
4. Spinal stenosis status post lumbar spine surgery and subsequent MRSA infection
5. Osteoarthritis
6. History of peptic ulcer disease
7. Gastroesophageal reflux disease
8. History of hiatal hernia status post fundoplication
9. Macular degeneration
10. Schatzki's ring
11. History of detached retina left eye
12. Osteoporosis
13. Ambulatory dysfunction
HPI: Patient is a 79-year-old female with known aortic stenosis with her most recent echo demonstrating now severe with mild AI, peak and mean gradients of 110/65 mmHg with an aortic valve area of 0.5 cm�. She was therefore referred for TAVR.
After all preoperative workup was completed she was deemed a suitable candidate to undergo TAVR.
Hospital course: She was brought in electively on 04/09/2024 where she underwent a right transfemoral TAVR with a #23 Gonzales S3 valve by Drs. Acevedo and Golden. There were no periprocedural complications and she was transferred to recovery in
stable condition. Postop EKG demonstrated normal sinus rhythm with no changes. She remained stable overnight on postop day 1 a repeat transthoracic echo demonstrates a well-seated valve with mean gradient of 13mmHg. She was discharged to home
with close follow-up with transitional care nurse and [facility] they will see her in a few days.
Home medication changes: Patient is instructed to hold her lisinopril at this time due to relative hypotension. She also can resume her metformin on Wednesday 04/11 PM dose. All other home medications were resumed, she started on aspirin 81 mg daily
for her TAVR--but patient takes excedrin migraine (2tabs) almost daily for chronic pain/neuropathy. She was instructed to only take ASA 81mg on days that she does not take excedrin.
Discharge Plan
-
Patient Disposition: Home (Routine Discharge)
Discharge Diagnosis/Procedures: TF-TAVR
Condition: Good
Diet: Low Cholesterol and 2 Gram Sodium
Activity: As tolerated
Driving Restrictions: No driving for 1 week
Bathing Restrictions: OK to Shower
Others Tests: 30 Day Follow Up Echocardiogram: 05/11/2024 at 2:00pm at [facility].
Other Services: Cardiac Rehab
Wound Care: Please do not apply lotions, creams or powders to groin areas. Please monitor for increase pain, swelling, redness or drainage. Please notify your doctor if any occur.
Specialty Instructions: Weigh Daily- Call MD for wt gain/loss 3 lbs overnight/5 lbs in 1 week
Referrals:
CT Transitional Care Nurse [Outside] - in one to two days
(
The Cardiothoracic Transitional Care Nurse will call you to set up a visit in 1-2 days.)
Jolly Valderrama PA-C [Specified Professional Personl] - 05/06/24 1:20 pm
Edson Serna MD [Family Provider] - in four to six weeks (Please make an appointment in four to six weeks. )
Prescriptions:
New
acetaminophen 325 mg Tablet
650 mg PO Q6HPRN PRN (Reason: TRACEY, mild pain, or fever >101F) Qty: 0 0RF
aspirin 81 mg tablet,chewable
81 mg PO DAILY Qty: 90 0RF
Rx Instructions:
take ONLY on days that you do not take excedrin migraine
Continued
atorvastatin 10 mg Tablet
10 mg PO DAILY
gabapentin 300 mg Capsule
300 mg PO TID
omeprazole 20 mg Capsule,Delayed Release(Dr/Ec)
20 mg PO DAILY
lysine [L-Lysine] 500 mg Tablet
1,000 mg PO DAILY
tizanidine 2 mg Capsule
2 mg PO TID
omega 8-tls-emt-fish oil [Fish Oil] 1,000 mg (120 mg-180 mg) Capsule
1 cap PO DAILY
PreserVision AREDS-2 250-90-40-1 mg Capsule
2 tab PO HS
aloe vera
600 mg PO DAILY
latanoprost 0.005 % Drops
2 drp BOTH EYES DAILY
calcium carbonate [Calcium 600] 600 mg calcium (1,500 mg) Tablet
600 mg PO BID
ferrous sulfate [iron] 325 mg (65 mg iron) Tablet
65 mg PO DAILY
timolol maleate (PF) 0.25 % Dropperette
2 drp BOTH EYES HS
fluticasone propionate 50 mcg/actuation Beals,Suspension
2 spray INTRANASAL DAILY
Excedrin Migraine 250-250-65 mg Tablet
2 tab PO DAILY
Held
metformin 850 mg Tablet
850 mg PO DAILY
Hold Instructions: Resume on 04/12/24.
lisinopril 10 mg Tablet
10 mg PO DAILY
Hold Instructions: hold until resumed by your doctor
metformin 850 mg Tablet
1,700 mg PO QPM
Hold Instructions: Resume on 04/11/24.
Discharge Orders:
Discharge Patient (As Directed); Ordered 04/10/24
Ordered By: Kylie Escobar
Care Plan Goals
Care Plan Goals:
Problem: Readiness for enhanced knowledge related to diagnosis and treatment plan
Goal: Understand your diagnosis and treatment plan needs, including medications if applicable.
Instructions: Know your diagnosis, underlying causes and treatment plan options, including medications if applicable. Consult with your health care team to learn about your diagnosis and treatment plan, including medications if applicable.
Discharge Date and Time
Print Language: IRISH
--- NOTE | 2024-04-10 12:18 | PTCARENOTE ---
Sitting in chair, denies complaint. VSS. Assessment unchanged from prior.
--- NOTE | 2024-04-10 14:27 | PTCARENOTE ---
Discharge order obtained. INt and telemetry pack removed. Discharge instructions reviewed with pt and son. Questions answered. Wheeled to car by RN.
== END 2024-04-10 14:42 | disposition home or self-care (01) | DRG 267 ==
LOC: CVICU 09:25
PROVIDERS: Nurse Practitioner; ADMITTING PHYSICIAN Thoracic Surgery (Cardiothoracic Vascular Surgery); CONSULT PHYSICIAN Internal Medicine Interventional Cardiology; FAMILY PHYSICIAN Family Medicine
PROC: 02RF38Z Replacement of Aortic Valve with Zooplastic Tissue, Percutaneous Approach (ICD-10-PCS; 2024-04-09)
DX: I35.2 Nonrheumatic aortic (valve) stenosis with insufficiency (principal); Z00.6 Encounter for examination for normal comparison and control in clinical research program; J98.11 Atelectasis; I10 Essential (primary) hypertension; E78.5 Hyperlipidemia, unspecified; E11.40 Type 2 diabetes mellitus with diabetic neuropathy, unspecified; I95.9 Hypotension, unspecified; K21.9 Gastro-esophageal reflux disease without esophagitis; M48.00 Spinal stenosis, site unspecified; K22.2 Esophageal obstruction; H35.30 Unspecified macular degeneration; M19.90 Unspecified osteoarthritis, unspecified site; M81.0 Age-related osteoporosis without current pathological fracture; Z87.11 Personal history of peptic ulcer disease; Z86.14 Personal history of Methicillin resistant Staphylococcus aureus infection; Z79.82 Long term (current) use of aspirin; Z79.84 Long term (current) use of oral hypoglycemic drugs
CPT/HCPCS: 93308; 33361; 36415; 71045; 71046; 80048; 80053; 81003; 81015; 82248; 82962; 83036; 83880; 85025; 85027; 85347; 85610; 85730; 86850; 86900; 86901; 87070; 87077; 87086; 87186; 93005; 93306; 93321; 93325; C1760; C1769; C1894; Q9967

== ENCOUNTER → 2024-05-11 14:15 | Outpatient (REF) | payer MEDICARE, OTHER, SELFPAY | LOC: RCS 14:15 | PROVIDERS: ATTENDING PHYSICIAN Internal Medicine Cardiovascular Disease; FAMILY PHYSICIAN Family Medicine | DX: I35.0 Nonrheumatic aortic (valve) stenosis (principal) | CPT/HCPCS: 93306 ==